=== PATIENT | male | born 1980 | race Caucasian/White ===

== ENCOUNTER 2019-01-22 08:40 | Observation (INO) ==
--- NOTE | 2019-01-22 09:17 | PROVIDER DOCUMENTATION ---
HPI-Chest Pain - General Chief Complaint: Chest Pain Stated Complaint: CHEST PAIN Time Seen by Provider: 01/22/19 09:01 Source: patient Allergies/Adverse Reactions: Patient Allergies Allergy/AdvReac Type Severity Reaction Status Date / Time No Known Allergies Allergy Verified 03/22/18 16:31 Home Medications: Home Medication List Medication Instructions Recorded Confirmed Last Taken Type Loratadine [Claritin] 10 mg PO DAILY 01/22/19 01/22/19 Unknown History Losartan Potassium 100 mg PO DAILY 01/22/19 01/22/19 Unknown History Montelukast Sodium [Singulair] 10 mg PO DAILY 01/22/19 01/22/19 Unknown History Pantoprazole [Protonix] 40 mg PO DAILY@0700 01/22/19 01/22/19 Unknown History - History of Present Illness-CP Nature of Presenting Problem: Patient states that he began having epigastric pain and chest pain yesterday. It has continued. Nothing makes it better or worse. no radiation he has had n ausia, but no vomiting. He has had an ulcer in the past, but has had no melena. Location: reports: epigastric Chest Pain Radiation: reports: no radiation Quality of Pain: reports: aching, fullness Severity in ED: moderate Onset/Duration: 24 hours ago Timing: still present Context/Activities at Onset: reports: none Modifying Factors: improves with: nothing Associated Symptoms: reports: nausea Nitro Today/Relief: no nitro taken today Prior Chest Pain/Cardiac Workup: reports: no prior chest pain, stress test (3 years ago.) Similar Symptoms Previously?: No Recently Seen Here or By Another Healthcare Provider: No Review of Systems - Adult - REVIEW OF SYSTEMS - ADULT Constitutional: reports: no symptoms reported Eyes: reports: no symptoms reported Ears, Nose, Mouth & Throat: reports: no symptoms reported Cardiovascular: reports: see HPI Respiratory: reports: no symptoms reported Gastrointestinal: reports: see HPI, nausea Genitourinary: reports: no symptoms reported Musculoskeletal: reports: no symptoms reported Integumentary: reports: no symptoms reported Neurological: reports: no symptoms reported Psychiatric: reports: no symptoms reported Endocrine: reports: no symptoms reported Hematologic/Lymphatic: reports: no symptoms reported Allergic/Immunologic: reports: no symptoms reported Past History - Adult - PAST MEDICAL HISTORY-ADULT Review of Records: reports: Old Records Reviewed, Nursing Assessment Review Major Childhood Illnesses: reports: denies history Cardiovascular: reports: HTN, heart valve problem (aortic and mitral valve prolapse. bicusbid aortic valve) Respiratory: reports: denies history Gastrointestinal: reports: GI bleed Musculoskeletal: reports: denies history Neurological: reports: denies history - PRIOR SURGERIES/PROCEDURES Surgical/Procedure History: reports: none - IMMUNIZATION STATUS Childhood Immunizations: See Nurse Assessment Flu Vaccine: See Nurse Assessment Physical Exam-General - CONSTITUTIONAL General Appearance: appears well, alert, mild distress - EYES Eyes: PERRL/EOMI, pink conjunctivae, anisocoria - HEAD, EARS, NOSE, MOUTH & THROAT HENMT: normocephalic/atraumatic, moist mucous membranes, normal ENT inspection, TMs normal, pharynx normal - NECK Neck: non-tender, full range of motion, supple - RESPIRATORY Respiratory: chest non-tender, lungs clear, normal breath sounds, no pleuratic chest pain, no respiratory distress, no accessory muscle use - CARDIOVASCULAR Cardiovascular: normal peripheral pulses, regular rate, rhythm, no edema, no gallop, no JVD, no murmur - GASTROINTESTINAL (ABDOMEN) Abdominal Exam: normal bowel sounds, non tender, soft - LYMPHATIC Lymphatic: no adenopathy - MUSCULOSKELETAL Back Exam: normal inspection, no CVA tenderness Extremity: normal range of motion, non-tender, normal gait, normal inspection, no pedal edema, no calf tenderness - SKIN Integumentary: diaphoresis - NEUROLOGIC Neurologic: grossly normal - HEART Score HEART Score: History: Moderately Suspicious HEART Score: ECG: Normal HEART Score: Age: < or = 45 Years HEART Score: Risk Factors for Atherosclerotic Disease: 1 or 2 Risk Factors Progress - PLAN OF CARE/RESULTS Progress/Plan/Lab Results: Vital Signs - 8 hr 01/22/19 08:43 01/22/19 09:12 Temperature 97.7 F Pulse Rate 59 L 59 L Respiratory Rate 16 18 Blood Pressure 145/90 112/91 O2 Sat by Pulse Oximetry 99 Laboratory Results - last 24 hr 01/22/19 01/22/19 01/22/19 09:05 09:05 09:05 WBC RBC Hgb Hct MCV MCH MCHC RDW Std Deviation Plt Count MPV Immature Gran % (Auto) Neut % (Auto) Lymph % (Auto) [place] % (Auto) Eos % (Auto) Baso % (Auto) Immature Gran # (Auto) Neut # (Auto) Lymph # (Auto) [place] # (Auto) Eos # (Auto) Baso # (Auto) Sodium 135 L Potassium 4.4 Chloride 98 Carbon Dioxide 29 Anion Gap 8 BUN 20 Creatinine 1.1 Estimated GFR/1.73 m2 > 60 BUN/Creatinine Ratio 18 Glucose 105 H Calculated Osmolality 273 Calcium 9.4 Total Bilirubin 1.13 H AST 36 H ALT 40 Alkaline Phosphatase 85 Creatine Kinase 132 Troponin T < 0.010 Total Protein 7.3 Albumin 4.7 Globulin 2.6 Albumin/Globulin Ratio 1.8 Amylase Lipase 01/22/19 01/22/19 09:05 09:05 WBC 6.76 RBC 5.74 Hgb 17.0 Hct 48.8 MCV 85.0 MCH 29.6 MCHC 34.8 RDW Std Deviation 12.5 Plt Count 170 MPV 12.8 H Immature Gran % (Auto) 0.0 Neut % (Auto) 48.7 Lymph % (Auto) 34.2 [place] % (Auto) 8.7 Eos % (Auto) 8.0 Baso % (Auto) 0.4 Immature Gran # (Auto) 0.00 Neut # (Auto) 3.29 Lymph # (Auto) 2.31 [place] # (Auto) 0.59 Eos # (Auto) 0.54 Baso # (Auto) 0.03 Sodium Potassium Chloride Carbon Dioxide Anion Gap BUN Creatinine Estimated GFR/1.73 m2 BUN/Creatinine Ratio Glucose Calculated Osmolality Calcium Total Bilirubin AST ALT Alkaline Phosphatase Creatine Kinase Troponin T Total Protein Albumin Globulin Albumin/Globulin Ratio Amylase 46 Lipase 32 Orders Category Date Time Status Admit - [facility] Routine AdmDCTranf 01/22/19 10:45 Active Activity - Bed Rest with BRP ORDERED Care 01/22/19 10:45 Active Vital Signs Order ARRIVAL TO ROOM Care 01/22/19 10:45 Active Z-Document. for Tele Applied ORDERED Care 01/22/19 10:47 Active NPO Diet 01/22/19 10:48 Active Regular Diet Diet 01/22/19 Diet Enter Time Completed CHEST-PORTABLE [RAD] Stat Exams 01/22/19 09:17 Completed AMYLASE [CHEM] Stat Lab 01/22/19 09:05 Completed CBC WITH ELECTRONIC DIFF [HEME] Stat Lab 01/22/19 09:05 Completed CK PROFILE [SP CHEM] RTQ3H Lab 01/22/19 16:00 Ordered CK PROFILE [SP CHEM] RTQ3H Lab 01/22/19 19:00 Ordered CK PROFILE [SP CHEM] RTQ3H Lab 01/22/19 22:00 Ordered CK PROFILE [SP CHEM] Stat Lab 01/22/19 09:05 Completed COMPREHENSIVE METABOLIC PANEL [CHEM] Stat Lab 01/22/19 09:05 Completed LIPASE [CHEM] Stat Lab 01/22/19 09:05 Completed TROPONIN T Stat Lab 01/22/19 09:05 Completed TROPONIN T Stat Lab 01/22/19 10:49 Ordered 0.9% Sodium Chloride Inj [Ns] 1,000 ml Med 01/22/19 10:45 Active IV 85 mls/hr Telemetry [OM.EQ] Routine Oth 01/22/19 10:45 Active Transfer/Admit Order [TRANSFER] Routine Transfer 01/22/19 10:50 Ordered Result Diagrams: 01/22/19 09:05 01/22/19 09:05 - CONSULTS/PCP/HOSPITALIST Notification #1 *Consult/PCP/Hospitalist*: Dr Mota Time Discussed: 10:42 (Cardiac pause secondayr to vagal stimulation after blood draw. Procede with work up as indicated) #2 Consult: Dr Harris Time Discussed: 10:45 (admit) Departure - Departure Date of Disposition Decision: 01/22/19 Time of Disposition Decision: 10:52 DIAGNOSIS: Chest pain Disposition: ADMITTED INPATIENT 09 Certified Medical Emergency: Emergent Condition: Stable Referrals and Follow-Ups: Abel Lau MD [Primary Care Provider] - - Critical Care Note This patient required my direct & personal management of CC.: No Attestation - Physician/ MYRNA Attestation Patient care was provided by Advanced Practice Provider:: No The physician spent face to face time with patient:: Yes Advanced Practice Provider documentation review:: Supervising physician onsite and consulted in the evaluation and care of this patient. The physician did have a face to face encounter with the patient.
[2019-01-22 09:38] LABS: AGAP 8; ALB/GLOB RATIO 1.8; ALBUMIN 4.7 g/dL (3.5-5.0); ALKALINE PHOSPHATASE 85 U/L (32-122); BUN 20 mg/dL (8-22); CALCIUM 9.4 mg/dL (8.8-10.2); CHLORIDE 98 mmol/L (98-107); COSMO 273; CREATININE 1.1 mg/dL (0.7-1.2); ESTIMATED GFR > 60; GLUCOSE 105 mg/dL (70-104); GOT 36 U/L (10-34); GPT 40 U/L (10-44); POTASSIUM 4.4 mmol/L (3.5-5.1); SODIUM 135 mmol/L (136-145); TCO2 29 mmol/L (25-35); TOTAL BILIRUBIN 1.13 mg/dL (0.20-1.00); TOTAL PROTEIN 7.3 g/dL (6.3-8.3)
[2019-01-22 09:41] LABS: HEMATOCRIT 48.8 % (42.0-52.0); MCH 29.6 PG (27-31); MCHC 34.8 g/dL (33-37); RBC 5.74 XMIL (4.7-6.1); RDW 12.5 % (11.5-14.5); WBC 6.76 X1000 (4.8-10.8)
[2019-01-22 09:42] LABS: BASO# 0.03 X1000 (0.0-0.2); BASO% 0.4 % (0.0-0.8); EOS# 0.54 X1000 (0.0-0.7); LYMPH# 2.31 X1000 (1.2-3.4); LYMPH% 34.2 % (20.5-51.1); MONO# 0.59 X1000 (0.11-0.59); MONO% 8.7 % (1.7-9.3); MPV 12.8 FL (7.4-10.4); NEUT# 3.29 X1000 (1.4-6.5); NEUT% 48.7 % (42.2-75.2); PLT 170 X1000 (130-400)
--- NOTE | 2019-01-22 09:59 | Diag Imaging Result Doc PS360 ---
CHEST-PORTABLE - 01/22/2019 INDICATION: chest pain COMPARISON: 01/28/2015 FINDINGS: The lungs are normally expanded and clear. Heart size and mediastinal contours are normal. No pneumothorax or pleural effusion. IMPRESSION: Negative exam. Electronically signed by Sherman Pfeiffer 01/22/2019 9:57 AM
[2019-01-22 10:30] LABS: AMYLASE 46 U/L (20-200); LIPASE 32 U/L (13-60)
[2019-01-22] MEDS ORDERED: NS 1,000 ML IV ONE (10:45)
[2019-01-22] MEDS ORDERED: ZOFRAN IV PRN (12:54)
[2019-01-22] MEDS ORDERED: AMBIEN PO PRN (12:54)
[2019-01-22] MEDS ORDERED: SALINE LOCK IV FLUID XX ONE (12:54)
--- NOTE | 2019-01-22 16:47 | HISTORY AND PHYSICAL ---
CHIEF COMPLAINT: Intermittent chest pain. PRESENT ILLNESS: Mr. Lawrence is a 38-year-old white male with a history of bicuspid aortic valve with aortic regurgitation and hypertension. He presented to the emergency room this morning after experiencing several episodes of chest pain yesterday afternoon and last night. The pain was described as a substernal heartburn like feeling but possibly occurred immediately after he finished running. He has, for years, run for an hour or so three or four days a week and towards the end of a run yesterday noticed some epigastric and lower substernal chest discomfort. It did not radiate and was not associated with shortness of breath or shoulder or arm pain. He denies any aggravating or relieving factors. He has intermittently felt a little nausea but no vomiting. He was admitted four years ago with acute duodenal ulcer with hemorrhage but has not experienced any melena or other symptoms of GI bleeding since then. He states that he saw Dr. Lau three to four weeks ago for a health maintenance exam and was Hemoccult positive. He is followed by Dr. Haley and has an appointment in a week or two for EGD and colonoscopy. Dr. Lau, three to four weeks ago, started him on pantoprazole 40 mg daily and he has taken this faithfully. He has a history of intermittent reflux symptoms but has not had any significant symptoms in the last several weeks. In the emergency room, he had an approximately four second sinus pause associated with diaphoresis. It seemed to be triggered by the nurse starting an IV and withdrawing multiple blood samples for analysis. He says he has previously had vagal episodes when donating blood. He has been followed by [facility] control room supervisor, Dr. Kay Ca since approximately age 18 due to his hypertension and bicuspid aortic valve. He is scheduled to see her in three to four weeks for routine yearly followup. PAST MEDICAL HISTORY: In addition to the above, he has a history of occasional asthma, diverticulosis, hemorrhoids, and dyslipidemia with a low HDL. Also, mitral valve prolapse, psoriasis, and restless leg syndrome. HOME MEDICATIONS: Loratadine 10 mg daily as needed for allergies, losartan/potassium 100 mg tablets one daily on the days that he does not run and half a tablet daily on the days that he does run, Singulair 10 mg daily, and pantoprazole 40 mg q a.m. ALLERGIES: No known drug allergies. SOCIAL HISTORY: He is and lives in the [facility]. 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 FAMILY HISTORY: Father is living but had a stroke at age 46. Also, has hypertension. His mother is living as well. He is a former smoker but has not smoked since 2003. He has occasional social alcohol intake. REVIEW OF SYSTEMS: General: No fever, chills, night sweats, or weight loss. He has discussed the general feeling of lower than normal energy with Dr. Lau. He states that recent lab work was remarkable for low testosterone. HEENT: Vision and hearing are adequate without recent changes. Respiratory: No cough, shortness of breath, or sputum production. He does have a history of occasional wheezing but no recent asthma attacks. Cardiovascular: As above. No recent edema, orthopnea, palpitations, or syncope. Gastrointestinal: Appetite is good. No nausea, vomiting, diarrhea, or constipation. No melena or bright red blood per rectum. He has very rare intermittent bright red hemorrhoidal bleeding. : No dysuria or increased frequency of urination. No hematuria. Musculoskeletal: No significant joint pains or arthralgias. Neuropsychiatric: No history of strokes. He had one isolated seizure at age 16, but none since. He denies any history of mood or memory disorders. Dermatologic: He has a history of psoriasis and uses a tanning bed occasionally. He sees Dr. Sotelo and uses topical steroids as needed. PHYSICAL EXAMINATION: VITAL SIGNS: Temperature 97.7, blood pressure 141/88, pulse 51, respirations 20, O2 saturation 99% on room air. GENERAL APPEARANCE: Alert, pleasant, young man with his mother at the bedside. No acute distress. SKIN: Warm, doyle, and dry without rash or reduced turgor. HEENT: Pupils are equal, round, and reactive to light. Extraocular movements are intact. Oropharynx is benign. NECK: Supple with no adenopathy, JVD, thyromegaly, or bruits. LUNGS: Clear to auscultation and percussion bilaterally. CARDIAC: Regular rate and rhythm with grade 1 to 2/6 systolic ejection murmur at the right upper sternal border without radiation. Do not appreciate any diastolic murmurs. PMI is nondisplaced. ABDOMEN: Soft. Nontender with active bowel sounds. No guarding or rebound tenderness present. GENITAL AND RECTAL EXAM: Deferred. EXTREMITIES: No cyanosis, clubbing, or edema. NEUROLOGIC: Mental status is normal. Cranial nerve examination is normal. He moves all extremities on command. Gait is not tested. DATABASE: CBC is entirely normal with platelet count of 170,000. Chemistry profile likewise normal. Electrolytes normal. BUN 20 and creatinine 1.1. Nonfasting glucose 105. Bilirubin 1.13. CPK and troponins are negative. Amylase and lipase are normal. ASSESSMENT: 1. Chest discomfort in a young man with a history of bicuspid aortic valve. In the past, Dr. Ca has told him that she did not expect him to need surgical replacement of the aortic valve until age 58 or so. He also has significant source of gastrointestinal with a history of peptic ulcer disease and recently was restarted on his proton pump inhibitor. 2. Bicuspid aortic valve with significant aortic regurgitation. 3. Recent Hemoccult positive stool with history of gastrointestinal bleeding. 4. Hypertension. Adequately controlled. 5. History of dyslipidemia. I feel relatively confident he had a lipid profile several weeks ago with Dr. Lau' office lab work. TREATMENT PLAN: Due to his bradycardia, I feel it is shaver to observe him overnight on monitor worker. He has adequate Cardiology followup already arranged and Dr. Lau may choose to discharge him tomorrow morning if everything remains quite stable. We will get further troponins and another EKG in the morning, but I think it is unlikely that his angina is due to coronary disease and if it is angina it may be due to his bicuspid aortic valve approaching surgical intervention time. cc: Benja Harris MD MTDD
--- NOTE | 2019-01-22 18:06 | EKG Report ---
Test Performed on : 01/22/2019 08:45:15 AM Test Reason : chest pain Blood Pressure : / mmHG Vent. Rate : 063 BPM Atrial Rate : 063 BPM P-R Int : 180 ms QRS Dur : 088 ms QT Int : 424 ms P-R-T Axes : 019 028 051 degrees QTc Int : 433 ms Normal sinus rhythm. Normal ECG When compared with ECG of 28-JAN-2015 16:52, No significant change was found Unconfirmed Result
[2019-01-23] MEDS: PROTONIX PO SCH ×2 (05:53→05:59)
--- NOTE | 2019-01-23 07:12 | EKG Report ---
Test Performed on : 01/23/2019 07:06:21 AM Test Reason : CP, bicuspid aortic valve Blood Pressure : / mmHG Vent. Rate : 056 BPM Atrial Rate : 056 BPM P-R Int : 204 ms QRS Dur : 096 ms QT Int : 452 ms P-R-T Axes : 023 021 043 degrees QTc Int : 436 ms Sinus bradycardia. Otherwise normal ECG When compared with ECG of 22-JAN-2019 08:45, (Unconfirmed) No significant change was found Confirmed by Nigel Morin MD ([id number]) on 01/24/2019 12:06:26 PM
[2019-01-23] MEDS: SINGULAIR PO SCH (08:31)
[2019-01-23] MEDS: COZAAR PO SCH (08:31)
--- NOTE | 2019-01-23 11:22 | CARDIOLOGY CONSULTATION ---
DATE: 01/23/2019 REASON FOR CONSULTATION: Cardiology was consulted for chest pain. HISTORY OF PRESENT ILLNESS: Mr. Garrett is a 38-year-old gentleman with history of bicuspid aortic valve with a history of hypertension, followed at the [facility]. Came to the emergency room with episodes of epigastric burning discomfort which have been intermittent. These were also in the lower sternal area as well. He has had a history of GI issues with duodenal ulcer 3 to 4 years back. He was heme positive, and GI workup is planned. However, as his symptoms worsened, patient came to the emergency room, was admitted. During his visit in the emergency room, he was also having blood drawn, and he had a vasovagal episode with about a 4- second pause noted. I have not seen the strips, but this is per the emergency room physicians who were there. The patient has had previous vasovagal episodes while donating blood as well. There was no radiation of the pain to the back or down the arms. There is no history of palpitations. He has had longstanding hypertension as well. REVIEW OF SYSTEM: A 14-point review of systems was done.Cardiovascular System: As above. Genitourinary System: Above. Respiratory System: There is no history of cough, expectoration, hemoptysis. Constitutional: There is no history of fevers or chills. Endocrine system: Stable. PAST MEDICAL HISTORY: 1. Bicuspid aortic valve. 2. Hypertension. 3. Duodenal ulcer. 4. History of psoriasis. 5. Restless legs syndrome. HOME MEDICATIONS: Losartan 100MG. Singulair 10 mg ALLERGIES: He is not known to be allergic to any medications. SOCIAL HISTORY: He is . Lives in [place]. 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 FAMILY HISTORY: Father is living, had a stroke at 47, has history of hypertension. PHYSICAL EXAMINATION: Vital Signs: Blood pressure was 141/88 when he came to the emergency room. Cardiovascular: First and second heart sounds were heard. There was faint systolic murmur. Respiratory System: Normal air entry. There are no crepitations or rhonchi. Abdomen: Soft, nontender. There was no guarding or rigidity. Bowel sounds were heard. Central nervous system: Alert, oriented, and was moving all 4 extremities. Extremities: Examination of extremities revealed no pedal edema. HEENT: Atraumatic, normocephalic. Pupils were equal and reacting to light. DIAGNOSTIC STUDIES: Chest x-ray was unremarkable. Cardiac enzymes were negative. Electrocardiogram revealed normal sinus rhythm, normal EKG. ASSESSMENT AND PLAN: 1. Mr. Tyson Lawrence is a 38-year-old gentleman with history of bicuspid valve, hypertension, history of duodenal ulcer in the past, who comes with complaints of epigastric discomfort and was noted to have been heme-positive as an outpatient; gastrointestinal workup is planned. His symptoms of epigastric lower sternal symptoms worsened. Given this, he came to the emergency room. From a cardiac standpoint, cardiac enzymes are negative. Electrocardiogram was normal. We will set him up to undergo a Cardiolite stress test to rule out ischemia. 2. He is followed by cardiologists at the [facility]. Has an appointment to see them in February 2019. Typically, he has an echocardiogram done at [facility] and follows up with the thread marker. Given this, we will have the echocardiogram done there. His last echocardiogram per patient revealed bicuspid valve. Otherwise, no significant other abnormalities noted. 3. Hypertension. Continue with his medications. 4. He has heme positive stool. Has gastrointestinal workup planned as an outpatient. His hemoglobin and hematocrit are stable. Thank you for the consult. cc: MD Benja Samson MD MTDD
--- NOTE | 2019-01-23 15:23 | Diag Imaging Result Document ---
PROCEDURE NAME: MYOCARDIAL PERF SCAN, STR/REST - 01/23/2019 INDICATION: Epigastric pain, chest pain. PROCEDURES PERFORMED: 1. Gutierrez protocol stress. 2. One-day stress rest myocardial perfusion imaging. PROCEDURE IN DETAIL: Mr. Garrett was brought to the nuclear laboratory and had a resting study with injection of 15.7 mCi of technetium-99m sestamibi with the usual imaging protocol utilized. He subsequently was brought back and had a Gutierrez protocol stress. At peak stress, he was injected with 45.3 mCi of technetium-99m sestamibi with the usual imaging protocol utilized. FINDINGS: Gutierrez protocol stress results: 1. Baseline EKG shows sinus rhythm. 2. Patient exercised for a total of 13 minutes and 25 seconds, achieving a peak heart rate of 153 which was 85% of age predicted max. He achieved 16 METS and mid stage 5 of the Gutierrez protocol. Exercise capacity was 122% of age and sex predicted exercise capacity. 3. Appropriate blood pressure response to exercise. 4. Test was terminated due to fatigue. 5. No evidence of anginal complaints occurring during the course of the study. 6. No ischemic related EKG changes or significant arrhythmias. 7. Elliott treadmill score of 13.5, indicating a low risk study. Perfusion imaging results: 1. No evidence of abnormal extracardiac uptake. 2. TID ratio is 1.01. 3. Perfusion imaging demonstrates a small size, mild intensity, fixed defect at the apex. This is likely suggestive of apical thinning artifact. There is no evidence of ischemia on this study. 4. Normal ejection fraction of 73%. End-diastolic volume of 172, end-systolic volume of 47. Normal wall motion. cc: MD Karley Moreira PA
--- NOTE | 2019-01-23 21:32 | PROGRESS NOTE ---
DATE: 01/23/2019 SUBJECTIVE: Patient's chart was reviewed. In summary, patient was admitted yesterday with chest discomfort/epigastric pain. While in the emergency department, the patient experienced a 4 second pause associated with his phlebotomy. Patient was followed with serial cardiac enzymes which returned negative. Pantoprazole therapy was continued. This morning, upon my arrival, patient continued to complain of pain. Cardiology was consulted secondary to his 4 second pause and chest pain in the setting of a bicuspid aortic valve. The patient was taken for stress testing. No evidence of ischemia was identified. This evening, upon my arrival, patient continued to complain of epigastric tenderness. He denied significant nausea, vomiting, shortness of breath, or chest discomfort. He has experienced no hematochezia or melena. OBJECTIVE: Vital Signs: T-max 98.4 degrees, heart rate 51 to 68, respirations 16 to 20, blood pressure 112 to 145 over 78 to 92. General: Well nourished, well developed, no acute distress. Cardiovascular: Regular rate and rhythm. No significant murmurs, rubs, or gallops. Pulmonary: Clear to auscultation bilaterally. Abdomen: Soft, nontender, and nondistended. Positive bowel sounds. Extremities: Moves all extremities well. No significant clubbing, cyanosis, or edema. Dermatologic: Evaluation reveals no evidence of rash. LABORATORY DATA: None. ASSESSMENT AND PLAN: 1. Epigastric tenderness/chest discomfort- As above, patient's stress testing today returned negative. I have discussed case with Dr. Haley. We will plan esophagogastroduodenoscopy in the morning. We will continue Protonix for now. 2. 4 second sinus pause- This likely was secondary to a vagal event. We will continue to follow patient with telemetry. 3. Hemoccult-positive stools- Patient was diagnosed as an outpatient. We will pursue esophagogastroduodenoscopy. If this returns negative, we will consider whether colonoscopy is appropriate as an outpatient. 4. Hypertension- We will continue patient on his home regimen. 5. Disposition- At this point, patient continues to require senior care care in a hospital setting. We will plan discharge home once appropriate. cc: MD Benja Salomon MD MTDD
[2019-01-24] MEDS: PROTONIX PO SCH (06:06)
[2019-01-24] MEDS ORDERED: STERILE WATER INJ. ONE (07:26)
[2019-01-24] MEDS ORDERED: DIPRIVAN 1% ONE ×2 (07:26→07:27)
--- NOTE | 2019-01-24 08:34 | ENDOSCOPY OPERATIVE NOTE ---
[facility] ENDOSCOPY OPERATIVE NOTE , PATIENT: Tyson Lawrence ADMISSION DATE: 01/24/2019 MR#: [id number] : 1980 [facility] [id number] EGD PROCEDURE REPORT PROCEDURE DATE: 01/24/2019 SURGEON: Ehsan Haley MD STATUS: inpatient PIN SETTER: Junior Franks PREOPERATIVE DIAGNOSIS: The patient is a 38 yr old male here for an EGD due to epigastric abdominal pain and Atypical chest pain.. PROCEDURE PERFORMED: EGD w/ biopsy MEDICATIONS: Per Anesthesia TOPICAL ANESTHETIC: none CONSENT: The patient understands the risks and benefits of the procedure and understands that these r isks include, but are not limited to: sedation, allergic reaction, infection, perforation and/or bleeding. Alternative means of evaluation and treatment include, among others: physical exam, x-rays, and/or surgical intervention. The patient elects to proceed with this endoscopic procedure. HISORY AND PHYSICAL: 01/24/2019 function. Hand hygiene and appropriate measures for infection prevention was taken. After the risks, benefits and alternatives of the procedure were thoroughly explained, Informed consent was verified, confirmed and timeout was successfully executed by the treatment team. The patient was anesthetized with topical anesthesia and the IH23-p23 ([id number]) endoscope was introduced through the mouth and advanced to the second portion of the duoden um. Retroflexion was performed in the stomach and revealed no abnormalities. The gastroscope was then slowly withdraw n and removed. ESOPHAGUS: Mild reflux esophagitis was found 40 cm from the incisors and at the gastroesophageal junc tion. Esophagitis was LA Class A: One or more mucosal breaks < 5 mm in maximal length. A biopsy was performed using ho t forceps. Sample sent for histology. There was no evidence of Hiatal hernia, Summers's esophagus or esophageal varic es. The esophagus was otherwise normal. Multiple random biopsies were performed using cold forceps. Sample obtained for evaluation of eosinophilic esophagitis. STOMACH: Mild gastritis (inflammation) was found in the gastric fundus. Multiple biopsies were perfo rmed using cold forceps. Sample sent for histology. There was no evidence of AVM, Ulcer, tumor or masses noted. The stomach otherwise appeared normal. DUODENUM: The duodenal mucosa showed no abnormalities. SPECIMENS REMOVED: No ADVERSE EVENTS: There were no complications. POSTOPERATIVE DIAGNOSIS: 1. Reflux esophagitis 40 cm from the incisors and at the gastroesophage al junction; biopsy was performed 2. The esophagus was otherwise normal; multiple random biopsies were performed 3. Gastritis (inflammation) was found in the gastric fundus; multiple biopsies were performed 4. The stomach otherwise appeared normal 5. The duodenal mucosa showed no abnormalities RECOMMENDATIONS: 1. Start Proton pump inhibitor twice daily - 30 minutes before a meal 2. Avoid non-steroid anti-inflammatory drugs 3. Follow-up biopsy results in 2 weeks 4. Discharge home when standard parameters are met 5. Follow up with GI Doctor in 2 months REPEAT EXAM: Ehsan Haley MD eSigned: Ehsan Haley MD 01/24/2019 8:34 AM cc: Abel Lau MD PATIENT NAME: Tyson Lawrence MR#: [id number]
[2019-01-24] MEDS: SINGULAIR PO SCH (09:24)
[2019-01-24] MEDS: COZAAR PO SCH (09:24)
[2019-01-24 16:57] VITALS: BP 134/79
[2019-01-24] MEDS ORDERED: PROTONIX PO ONE (19:06)
--- NOTE | 2019-01-24 20:42 | DISCHARGE SUMMARY ---
ADMISSION DATE: 01/22/2019 DISCHARGE DATE: 01/24/2019 ADMISSION DIAGNOSIS: Chest discomfort. DISCHARGE DIAGNOSES: 1. Epigastric tenderness/chest discomfort, likely secondary to reflux esophagitis. 2. Sinus pause, likely vasovagal in etiology. 3. Hemoccult-positive stools, present on arrival. 4. Hypertension, present on arrival. CONSULTATIONS: 1. Dr. Harvey with Cardiology was consulted for further evaluation and management of a sinus pause with associated chest discomfort. 2. Dr. Haley was consulted for further evaluation and management of epigastric tenderness. PROCEDURES: 1. A myocardial perfusion stress test was performed on 01/22/2019 which revealed no evidence of anginal complaints during the course of the study. No ischemic-related EKG changes or significant arrhythmias. A small size, mild-intensity, fixed defect was noted at the apex on perfusion imaging. This likely suggested apical thinning artifact. No evidence of ischemia was identified. A normal ejection fraction of 73%. 2. EGD was performed on 01/24/2019 which revealed reflux esophagitis and gastritis. HISTORY AND PHYSICAL EXAMINATION: See admit note. PHYSICAL EXAMINATION PRIOR TO DISCHARGE: vital signs: Temperature 97.7 degrees, heart rate 52, respirations 20, blood pressure is 134/79. General: Well nourished, well developed, no acute distress. Cardiovascular: Regular rate and rhythm. No significant murmurs, rubs, or gallops. Pulmonary: Clear to auscultation bilaterally. Abdomen: Soft, nontender, nondistended. Positive bowel sounds. Extremities: Moves all extremities well. No significant clubbing, cyanosis, or edema. Dermatologic: Evaluation reveals no evidence of rash. LABORATORY DATA PRIOR TO DISCHARGE: None. HOSPITAL COURSE: The patient was admitted as per history and physical examination. Hospital course per condition is as follows. 1. Epigastric tenderness/chest discomfort - Upon admission, the patient was noted to have considerable pain. While in the emergency department, the patient experienced a 4-second sinus pause. This occurred while blood was being drawn. Because of the patient's pain as well as the sinus pause, Cardiology was consulted. A stress test was performed returning negative. Because this pain persisted, Dr. Haley with Gastroenterology was consulted for further evaluation and management. EGD suggested reflux esophagitis and gastritis. At time of discharge, the patient's pain had improved. The patient will be discharged home on Protonix twice daily for the next month, then as needed. We will follow this. 2. Sinus pause - While in the emergency department, the patient experienced a 4-second sinus pause. He was followed with telemetry while hospitalized without evidence of a recurrence. It was felt this likely was vasovagal in etiology. We will remain aware. 3. Hemoccult-positive stools - The patient was diagnosed as an outpatient. EGD was performed while hospitalized without evidence of active bleeding. We will plan a colonoscopy as an outpatient. 4. Hypertension - The patient was maintained on losartan while hospitalized. Blood pressure remained reasonably controlled. DISCHARGE CONDITION: Good. DISPOSITION: Discharge to home. MEDICATIONS: 1. Losartan 100 mg daily. 2. Singulair 10 mg daily. 3. Protonix 40 mg twice daily. 4. Claritin daily as needed. FOLLOWUP: The patient is to followup with me in approximately 2 to 3 weeks. The patient is to follow up with Dr. Haley as arranged. cc: MD Benja Salomon MD
[2019-01-24] MEDS ORDERED: PRILOSEC PO SCH (21:00)
== END 2019-01-24 20:23 | disposition home or self-care (01) ==
LOC: ED 08:40 → 3N 08:41 → INTOOBSV 08:41
PROVIDERS: ADMIT Internal Medicine; ATTEND Internal Medicine